=== PATIENT | male | born 2000 | race Caucasian/White ===

== ENCOUNTER 2021-02-04 14:17 | Emergency (ER) | payer MEDICAID, SELFPAY ==
[~2021-02-04] VITALS: Ht 177.8 cm; Wt 67.7 kg
[2021-02-04 14:24] VITALS: BP 121/74
== END 2021-02-04 16:49 | disposition home or self-care (01) ==
LOC: M ED 14:17
DX: T23.272A Burn of second degree of left wrist, initial encounter (principal); T31.0 Burns involving less than 10% of body surface; Y92.9 Unspecified place or not applicable; Y93.9 Activity, unspecified; Y99.9 Unspecified external cause status

== ENCOUNTER 2022-09-16 10:40 | Emergency (ER) | payer SELFPAY ==
[~2022-09-16] VITALS: Ht 177.8 cm; Wt 70.0 kg
[2022-09-16 10:42] VITALS: BP 133/70
[2022-09-16] MEDS ORDERED: IBUPROFEN 600MG TAB PO ONE (11:50)
[2022-09-16] MEDS ORDERED: PHENAZOPYRIDINE 100 MG TAB PO ONE (11:50)
[2022-09-16 12:35] LABS: GC DNA AMPLIFICATION NEGATIVE (NEGATIVE)
[2022-09-16] MEDS ORDERED: PYRI1TAB5 PO (12:42)
== END 2022-09-16 12:49 | disposition home or self-care (01) ==
LOC: M ED 10:40
DX: R30.0 Dysuria (principal); F17.290 Nicotine dependence, other tobacco product, uncomplicated; F12.10 Cannabis abuse, uncomplicated; J30.2 Other seasonal allergic rhinitis

== ENCOUNTER → 2024-03-19 | Outpatient (REF) ==
[~2024-03-19] MED LIST: PYRI1TAB5 PO
[2024-03-20 15:57] LABS: HERPES ZOSTER, VARICELLA IgG 3.34 S/CO (>=1.00)
== END ==
LOC: M LAB 10:46
PROVIDERS: ATTEND Family Medicine
DX: Z00.00 Encounter for general adult medical examination without abnormal findings (principal)

== ENCOUNTER 2024-05-28 11:39 | Emergency (ER) | payer OTHER, SELFPAY ==
[~2024-05-28] VITALS: Ht 177.8 cm; Wt 71.1 kg
[2024-05-28] MEDS: ACETAMINOPHEN 500 MG TAB PO ONE (14:34)
[2024-05-28] MEDS ORDERED: AMOX500C PO (15:01)
[2024-05-28] MEDS ORDERED: IBUP-1022 PO (15:01)
[2024-05-28 15:28] VITALS: BP 142/71; TEMP 97.6; O2SAT 99
== END 2024-05-28 15:29 | disposition home or self-care (01) ==
LOC: M ED 11:39
DX: K04.7 Periapical abscess without sinus (principal); Z79.2 Long term (current) use of antibiotics; Z79.1 Long term (current) use of non-steroidal anti-inflammatories (NSAID); Z79.899 Other long term (current) drug therapy